=== PATIENT | female | born 2000 | race Two or more races ===

== ENCOUNTER 2022-08-16 23:01 | Emergency (ER) | payer OTHER ==
[~2022-08-16] VITALS: Ht 165.1 cm; Wt 56.8 kg
[2022-08-16 23:28] LABS: COVID AG,FIA SOURCE NASAL SWAB
[2022-08-16 23:41] LABS: RAPID GROUP A STREP NEGATIVE (NEGATIVE)
[2022-08-16 23:50] LABS: INFLUENZA TYPE A NEGATIVE FOR TYPE A (NEGATIVE); INFLUENZA TYPE B NEGATIVE FOR TYPE B (NEGATIVE)
[2022-08-17 00:30] VITALS: BP 129/77
== END 2022-08-17 01:30 | disposition home or self-care (01) ==
LOC: EMS 23:04
DX: J02.9 Acute pharyngitis, unspecified (principal); Z20.822 Contact with and (suspected) exposure to COVID-19
CPT/HCPCS: 87430; 87804; 99283